=== PATIENT | female | born 2000 | race African-American/Black ===

== ENCOUNTER 2020-01-30 19:57 | Inpatient (IN) | payer MEDICAID ==
[~2020-01-30] VITALS: Ht 165.1 cm; Wt 68.0 kg
[2020-01-30] MEDS ORDERED: METHYLERGONOVINE MALEATE 0.2 MG/ML IM PRN (20:15)
[2020-01-30] MEDS ORDERED: BUTORPHANOL TARTRATE 2 MG/ML VIAL IV PRN (20:15)
[2020-01-30] MEDS ORDERED: NALOXONE HCL 0.4 MG/ML 1ML VIAL IM PRN (20:15)
[2020-01-30] MEDS ORDERED: CARBOPROST TROMETHAMINE 250 MCG/ML AMPUL IM PRN (20:15)
[2020-01-30] MEDS: LACTATED RINGERS 1,000 ML IV SCH ×2 (20:27→22:15)
[2020-01-30 20:57] LABS: BASOPHILS % 0.5 % (0.0-2.0); EOSINOPHILS % 0.1 % (0.0-5.0); HEMATOCRIT. 38.9 % (36.0-48.0); HEMOGLOBIN. 13.2 g/dL (12.0-16.0); LYMPHOCYTES % 7.5 % (20.0-50.0); MEAN CORPUSCULAR HEMOGLOBIN 29.3 pg (28.0-32.0); MEAN CORPUSCULAR VOLUME 86.1 fL (81.0-99.0); MEAN PLATELET VOLUME 8.9 fl (7.4-10.4); MONOCYTES % 7.9 % (2.0-8.0); PLATELET 178 x1000/uL (130-400); RED BLOOD CELL COUNT 4.52 mill/uL (4.2-5.4); RED CELL DISTRIBUTION WIDTH 14.4 % (11.6-14.6)
[2020-01-30] MEDS ORDERED: PNEUMOCOCCAL 23-VAL P-SAC VAC 0.5 ML IM ONE (21:00)
[2020-01-30] MEDS ORDERED: LIDOCAINE HCL 1% 20ML VIAL (Pyxis) INJ INFIL SCH (21:00)
[2020-01-30] MEDS ORDERED: AMPICILLIN 2,000 MG in SODIUM CHLORIDE 0.9% 100 ML IV NR (21:00)
[2020-01-30 21:05] LABS: INR 0.9; PARTIAL THROMBOPLASTIN TIME 27.1 sec (23.4-31.0)
[2020-01-30 21:14] LABS: CLARITY URINE CLOUDY (CLEAR); COLOR URINE YELLOW (YELLOW); KETONES URINE 3+ (NEGATIVE); LEUKOCYTE ESTERASE URINE 2+ (NEGATIVE); NITRITE URINE NEGATIVE (NEGATIVE); OCCULT BLOOD URINE 3+ (NEGATIVE); PH URINE 6.5 (4.5-8.0); PROTEIN URINE 1+ (NEGATIVE); SPECIFIC GRAVITY URINE 1.021 (1.005-1.030)
[2020-01-30 21:31] LABS: *BARBITURATES SCREEN URINE NEGATIVE (NEGATIVE)
[2020-01-30 21:32] LABS: *AMPHETAMINES SCREEN URINE NEGATIVE (NEGATIVE); *BENZODIAZEPINES SCREEN URINE NEGATIVE (NEGATIVE); *COCAINE SCREEN URINE NEGATIVE (NEGATIVE); METHADONE URINE SCREEN NEGATIVE (NEGATIVE); OPIATES URINE SCREEN NEGATIVE (NEGATIVE); PHENCYCLIDINE URINE SCREEN NEGATIVE (NEGATIVE)
[2020-01-30 21:33] LABS: CANNABINOID URINE SCREEN NEGATIVE (NEGATIVE)
[2020-01-30 21:43] LABS: HEPATITIS B SURFACE ANTIGEN NEGATIVE
[2020-01-30] MEDS ORDERED: ONDANSETRON HCL 4MG/2ML INJ IV PRN (22:00)
[2020-01-30] MEDS ORDERED: DIPHENHYDRAMINE 50MG/ML VIAL IV PRN (22:00)
[2020-01-30] MEDS ORDERED: ROPIVACAINE HCL/PF EPIDURAL 200 ML EP SCH (22:00)
[2020-01-30] MEDS: DEXT 5%/LR + PITOCIN 20UNITS/L 1,000 ML IV SCH (23:29)
[2020-01-31] MEDS ORDERED: AMPICILLIN 1,000 MG in SODIUM CHLORIDE 0.9% 50 ML IV SCH (03:00)
[2020-01-31] MEDS ORDERED: RHO(D) IMMUNE GLOBULIN 300 MCG/SYR IM PRN (05:15)
[2020-01-31] MEDS ORDERED: DEXT 5%/LR + PITOCIN 20UNITS/L 1,000 ML IV SCH (05:15)
[2020-01-31] MEDS ORDERED: IBUPROFEN 800MG TABLET PO PRN (05:15)
[2020-01-31] MEDS ORDERED: BENZOCAINE/LANOLIN/ALOE VERA SPRAY TOP PRN (05:15)
[2020-01-31] MEDS ORDERED: IBUPROFEN 400MG TABLET PO PRN (05:15)
[2020-01-31] MEDS: DEXT 5%/LR + PITOCIN 20UNITS/L 1,000 ML IV SCH ×2 (05:27→05:49)
[2020-01-31 06:43] VITALS: BP 118/70
[2020-01-31 07:31] VITALS: BP 115/71
[2020-01-31 15:49] VITALS: BP 114/80
[2020-01-31 22:00] VITALS: BP 90/50
[2020-02-01 03:30] VITALS: BP 103/59
[2020-02-01 06:11] LABS: BASOPHILS % 0.2 % (0.0-2.0); EOSINOPHILS % 0.5 % (0.0-5.0); HEMATOCRIT. 32.1 % (36.0-48.0); HEMOGLOBIN. 10.6 g/dL (12.0-16.0); LYMPHOCYTES % 12.1 % (20.0-50.0); MEAN CORPUSCULAR HEMOGLOBIN 28.3 pg (28.0-32.0); MEAN CORPUSCULAR VOLUME 85.5 fL (81.0-99.0); MEAN PLATELET VOLUME 8.9 fl (7.4-10.4); MONOCYTES % 7.4 % (2.0-8.0); NEUTROPHILS % 79.8 % (40.0-76.0); PLATELET 160 x1000/uL (130-400); RED BLOOD CELL COUNT 3.75 mill/uL (4.2-5.4); RED CELL DISTRIBUTION WIDTH 14.6 % (11.6-14.6)
[2020-02-01] MEDS ORDERED: FERR325T6 MT (07:19)
[2020-02-01] MEDS ORDERED: PNV1TABL50 MT (07:19)
[2020-02-01] MEDS ORDERED: NORE0.3520 MT (07:19)
[2020-02-01] MEDS ORDERED: IBUP-2030 PO (07:19)
[2020-02-01 07:30] VITALS: BP 119/78
[2020-02-01 14:45] VITALS: BP 115/70
[2020-02-01 19:30] VITALS: BP 120/80
[2020-02-02 04:00] VITALS: BP 110/82
[2020-02-02 08:00] VITALS: BP 106/58
== END 2020-02-02 12:15 | disposition home or self-care (01) | DRG 560 ==
LOC: OBSVTOIN 19:57 → 8 EST LDRP 19:57 → 8EST 01-31 06:15
PROVIDERS: ADMIT Obstetrics & Gynecology; ATTEND Obstetrics & Gynecology
PROC: 10E0XZZ Delivery of Products of Conception, External Approach (ICD-10-PCS; principal; 2020-01-31)
PROC: 3E0R3BZ Introduction of Anesthetic Agent into Spinal Canal, Percutaneous Approach (ICD-10-PCS; 2020-01-31)
PROC: 0W8NXZZ Division of Female Perineum, External Approach (ICD-10-PCS; 2020-01-31)
DX: O80 Encounter for full-term uncomplicated delivery (principal); Z37.0 Single live birth; Z3A.39 39 weeks gestation of pregnancy; Z79.899 Other long term (current) drug therapy
CPT/HCPCS: 36415; 80305; 81003; 85025; 86592; 86703; 86762; 86850; 86900; 87340; 99281; G0378; J0290; J0595; J2590; J2795; J3490; J7050; J7120